=== PATIENT | male | born 1970 | race Caucasian/White ===

== ENCOUNTER → 2017-03-03 | Day surgery (SDC) | payer BC ==
[~2017-03-03] MED LIST: BACTRIM DS TAB1 EACH PO; FENTANYL CITRATE/PF 100MCG/2 ML INJ ONE; LIDOCAINE HCL 2% LOCAL INJ 5 ML SDV VIAL INJ ONE; METOCLOPRAMIDE HCL 10 MG/2ML VIAL IV ONE; MIDAZOLAM HCL 2 MG/2 ML VIAL ONE; PANTOPRAZOLE 40 MG 10ML VIAL ONE; PROPOFOL IV EMULSION 10 MG/ML 50 ML VIAL ONE; ZANTAC 7575 MG PO
--- NOTE | 2017-03-03 13:30 | Operative Report ---
REFERRING PHYSICIAN: Dr. Jose A Miller. INDICATIONS FOR ESOPHAGOGASTRODUODENOSCOPY: Heartburn and indigestion. MEDICATION: Patient was done under MAC. Please see anesthesiologist's note. PROCEDURE: With the patient in the left lateral decubitus position, the flexible fiberoptic Olympus gastroscope was introduced into the esophagus under direct visualization without any difficulty. There was some patchy erythema noted in the distal esophagus. A focal nodularity was noted at the gastroesophageal junction that was biopsied. The lower esophageal sphincter appeared to be incompetent and the scope was then advanced with ease into the stomach, traversing an approximately 4 cm hiatal hernia. Mucosa overlying the antrum revealed some erosions and biopsies were obtained and sent to stain for H. pylori. The pylorus was of normal contour and shape. It was intubated with ease and the scope was advanced all the way to the second portion of the duodenum. The scope was then withdrawn slowly. Mucosa overlying the proximal second portion and the duodenal bulb appeared to be within normal limits. The scope was then withdrawn back into the stomach and retroflexed and mucosa overlying the fundus and the cardia appeared to be within normal limits. The scope was then straightened out. The stomach was decompressed. The scope subsequently withdrawn. Patient tolerated the procedure well. IMPRESSION 1. Distal esophagitis. 2. Focal nodularity gastroesophageal junction, biopsied. 3. Incompetent lower esophageal sphincter. 4. A 4-cm hiatal hernia. 5. Gastritis, erosive, biopsies obtained and sent to stain for Helicobacter pylori. PLAN: Followup histology. Initiate Protonix 40 mg 1 p.o. a.c. b.i.d. Job#: [id number] SHA cc:Jose A Miller MD
== END | disposition home or self-care (01) ==
LOC: OR 09:06
PROVIDERS: ATTEND Internal Medicine Gastroenterology
DX: K25.9 Gastric ulcer, unspecified as acute or chronic, without hemorrhage or perforation (principal); K20.9 Esophagitis, unspecified; K31.89 Other diseases of stomach and duodenum; K21.9 Gastro-esophageal reflux disease without esophagitis; K44.9 Diaphragmatic hernia without obstruction or gangrene; K22.8 Other specified diseases of esophagus; R05 Cough; F17.210 Nicotine dependence, cigarettes, uncomplicated; Z01.810 Encounter for preprocedural cardiovascular examination; Z68.27 Body mass index [BMI] 27.0-27.9, adult
CPT/HCPCS: 43239; 93005; J2001; J2250; J2765

== ENCOUNTER → 2019-01-08 | Day surgery (SDC) | payer BC ==
[~2019-01-08] MED LIST changes: -LIDOCAINE HCL 2% LOCAL INJ 5 ML SDV VIAL INJ ONE; -METOCLOPRAMIDE HCL 10 MG/2ML VIAL IV ONE; +OMEGA-31000 MG PO; +ONCE DAILY1 EACH PO; -PANTOPRAZOLE 40 MG 10ML VIAL ONE; +PANTOPRAZOLE SO40 MG PO; +PROPOFOL IV EMULSION 10 MG/ML 20 ML VIAL ONE; +VITAMIN D32000 UNI2 PO; +ZYRTEC10 M3 PO
[2019-01-08 11:15] VITALS: BP 120/81
--- NOTE | 2019-01-08 17:35 | Operative Report ---
DATE OF PROCEDURE: 01/08/2019 SURGEON: Salomon Quesada MD PROCEDURE: EGD with biopsies. INDICATIONS FOR EGD: History of Caputo esophagus, heartburn, chronic cough. MEDICATIONS: The patient was done under MAC, please see anesthesiologist's note. PROCEDURE IN DETAIL: With the patient in left lateral decubitus position, a flexible fiberoptic Olympus gastroscope was inserted into the oropharynx under direct visualization without any difficulty. There was a small lesion noted in the left tonsillar area suspicious for squamous papilloma. The scope was then advanced with ease into the esophagus and mucosa overlying the distal esophagus revealed some patchy areas of erythema. No obvious Caputo epithelium was noted. Biopsies were obtained from the distal esophageal mucosa just above the GE junction. The scope was then advanced with ease into the stomach traversing a small sliding hiatal hernia. Mucosa overlying the antrum and the body revealed some patchy areas of erythema. Two minute submucosal nodules were noted in the antrum and those were biopsied. Hyperplastic-appearing polyps were noted in the body of the stomach and some were partially excised with the cold biopsy forceps. Pylorus was of normal contour and shape, it was intubated with ease and the scope was advanced all the way to the second portion of the duodenum. The scope was then withdrawn slowly and biopsies were obtained from the proximal second portion and duodenal bulb to rule out sprue. The scope was then withdrawn back into the stomach and retroflexed, and mucosa overlying the fundus and the cardia appeared to be within normal limits. The scope was then straightened out. The stomach was decompressed. The scope was subsequently withdrawn. The patient tolerated the procedure well. IMPRESSION: 1. ? Squamous papilloma, left tonsillar area. 2. Distal esophagitis, mild. 3. No obvious Caputo epithelium noted. Biopsies obtained from distal esophagus just above the GE junction. 4. Small sliding hiatal hernia. 5. Gastritis, mild. 6. Gastric polyps, body, hyperplastic-appearing, some partially excised with the cold biopsy forceps. 7. Minute submucosal nodules x2, antrum, biopsied. 8. Rule out sprue. PLAN: Follow up histology. Continue current therapy. Add Reglan 10 mg 1 p.o. before supper and at bedtime. The patient will need an ENT evaluation. MD MICHELLE Chaudhari/MODL /[id number] cc: Jose A Miller MD
== END | disposition home or self-care (01) ==
LOC: OR 09:19
PROVIDERS: ATTEND Internal Medicine Gastroenterology
DX: K29.50 Unspecified chronic gastritis without bleeding (principal); K31.7 Polyp of stomach and duodenum; K22.70 Barrett's esophagus without dysplasia; K31.89 Other diseases of stomach and duodenum; K20.9 Esophagitis, unspecified; K21.9 Gastro-esophageal reflux disease without esophagitis; K44.9 Diaphragmatic hernia without obstruction or gangrene; R05 Cough; Z01.810 Encounter for preprocedural cardiovascular examination; Z87.891 Personal history of nicotine dependence
CPT/HCPCS: 43239; 93005; J2250; J2704 ×2; J3010